=== PATIENT | male | born 1960 | race Caucasian/White ===

== ENCOUNTER 2024-01-08 10:09 | Emergency (ER) | payer OTHER ==
[~2024-01-08] VITALS: Ht 175.3 cm; Wt 72.6 kg
[2024-01-08 10:20] VITALS: O2SAT 100
[2024-01-08 11:37] LABS: CHLORIDE 100 mEq/L (98-107); POTASSIUM 4.6 mEq/L (3.5-5.1); SODIUM 131 mEq/L (136-145)
[2024-01-08 11:38] LABS: BASOPHILS % 0.7 % (0.0-2.0); CARBON DIOXIDE 27 mEq/L (21-32); EOSINOPHILS % 1.4 % (0.0-5.0); HEMATOCRIT. 37.5 % (42.0-52.0); HEMOGLOBIN. 12.1 g/dL (14.0-18.0); LYMPHOCYTES % 20.7 % (20.0-50.0); MEAN CORPUSCULAR HGB CONC 32.3 g/dL (31.0-37.0); MEAN CORPUSCULAR VOLUME 98.9 fL (80.0-94.0); MONOCYTES % 9.4 % (2.0-8.0); NEUTROPHILS % 67.8 % (40.0-76.0); RED BLOOD CELL COUNT 3.79 mill/uL (4.7-6.1); RED CELL DISTRIBUTION WIDTH 15.1 % (11.6-14.6)
[2024-01-08 11:39] LABS: CALCIUM 9.8 mg/dL (8.7-10.4); DIFFERENTIAL COMMENT 1
[2024-01-08 11:43] LABS: CREATININE 1.2 mg/dL (0.6-1.3); GLUCOSE 316 mg/dL (70-105)
[2024-01-08 11:44] LABS: UREA NITROGEN BLOOD 9 mg/dL (9-23)
[2024-01-08 11:52] LABS: CLARITY URINE CLEAR (CLEAR); COLOR URINE YELLOW (YELLOW); GLUCOSE URINE 3+ (NEGATIVE); KETONES URINE NEGATIVE (NEGATIVE); LEUKOCYTE ESTERASE URINE NEGATIVE (NEGATIVE); NITRITE URINE NEGATIVE (NEGATIVE); OCCULT BLOOD URINE NEGATIVE (NEGATIVE); PH URINE 5.5 (4.5-8.0); PROTEIN URINE NEGATIVE (NEGATIVE); SPECIFIC GRAVITY URINE 1.016 (1.005-1.030); UROBILINOGEN URINE 0.2 E.U./dL (0.2-1.0)
[2024-01-08 12:13] LABS: BACTERIA URINE NONE SEEN; RBC URINE 0-2 /hpf (0-2); SQUAMOUS EPITHELIAL CELL URINE FEW /lpf (RARE/1+)
[2024-01-08 12:14] LABS: WBC URINE NONE SEEN /hpf (0-2)
[2024-01-08 12:21] LABS: *AMPHETAMINES SCREEN URINE NEGATIVE (NEGATIVE); *BARBITURATES SCREEN URINE NEGATIVE (NEGATIVE); *BENZODIAZEPINES SCREEN URINE NEGATIVE (NEGATIVE); *COCAINE SCREEN URINE NEGATIVE (NEGATIVE)
[2024-01-08 12:22] LABS: CANNABINOID URINE SCREEN PRESUMPTIVE POSITIVE (NEGATIVE); ECSTASY MDMA SCREEN URINE NEGATIVE (NEGATIVE); METHADONE URINE SCREEN NEGATIVE (NEGATIVE); OPIATES URINE SCREEN NEGATIVE (NEGATIVE); PHENCYCLIDINE URINE SCREEN NEGATIVE (NEGATIVE)
[2024-01-08 13:03] LABS: ETHANOL BLOOD < 10 mg/dL (<10)
[2024-01-08] MEDS: ACETAMINOPHEN 325MG TABLET PO ONE (16:05)
[2024-01-08] MEDS: TRAZODONE HCL 50MG TABLET PO ONE (22:04)
[2024-01-08] MEDS: INSULIN REGULAR (HUMULIN R) 1000UNITS/10ML VIAL SUBCUT ONE (22:05)
[2024-01-09] MEDS: INSULIN REGULAR (HUMULIN R) 1000UNITS/10ML VIAL SUBCUT ONE ×3 (16:06→18:47)
[2024-01-09] MEDS: SODIUM CHLORIDE 0.9% 1,000 ML IV ONE ×2 (17:58→17:59)
[2024-01-09 19:46] VITALS: BP 152/68; PULSE 74; RESP 20; TEMP 36.89184; O2SAT 100
[2024-01-09] MEDS ORDERED: RISPERIDONE 1MG TABLET PO SCH (21:00)
== END 2024-01-09 19:49 | disposition short-term general hospital (02) ==
LOC: ER 10:09
DX: R45.851 Suicidal ideations (principal); E11.9 Type 2 diabetes mellitus without complications; F20.9 Schizophrenia, unspecified; Z79.899 Other long term (current) drug therapy; Z90.49 Acquired absence of other specified parts of digestive tract
CPT/HCPCS: 80305; 80048; 81003; 80307; 80329; 80320; 82962 ×2; 85025; 36415; 96372 ×2; 99285; 87426; 96360; J1815 ×2; J7030; G0480